=== PATIENT | female | born 1990 | race Caucasian/White ===

== ENCOUNTER 2023-01-15 19:56 | Emergency (ER) | payer BC ==
[2023-01-15] MEDS ORDERED: Morphine 4 MG/ML VIAL IM ONE (20:22)
[2023-01-15] MEDS ORDERED: diphenhydrAMINE 50 MG/ML SDV IM ONE (20:22)
[2023-01-15] MEDS ORDERED: hydrOXYzine HCl 50 MG/ML SDV IM ONE (20:22)
[2023-01-15 21:11] VITALS: BP 143/78; PULSE 87
== END 2023-01-15 21:09 | disposition home or self-care (01) ==
LOC: FB.ED 19:56
DX: G43.111 Migraine with aura, intractable, with status migrainosus (principal)
CPT/HCPCS: 96372; 99283; J1200; J2270; J3410

== ENCOUNTER 2023-05-07 20:39 | Emergency (ER) | payer BC ==
[2023-05-07] MEDS: hydrOXYzine HCl 50 MG/ML SDV IM ONE (21:02)
[2023-05-07] MEDS: Ketorolac 30 MG/ML SDV IM ONE (21:02)
[2023-05-08 02:08] VITALS: BP 143/89; PULSE 92
== END 2023-05-07 21:45 | disposition home or self-care (01) ==
LOC: FB.ED 20:39
DX: G43.909 Migraine, unspecified, not intractable, without status migrainosus (principal)
CPT/HCPCS: 96372; 99283; J1885; J3410

== ENCOUNTER 2024-09-07 17:56 | Emergency (ER) | payer BC, OTHER ==
[2024-09-07 18:36] LABS: BASOPHILS PERCENT AUTO 0.2 % (0.2-1.5); EOSINOPHILS ABSOLUTE AUTO 0.1 x10-3/uL (0.0-0.8); EOSINOPHILS PERCENT AUTO 0.9 % (0.6-8.1); HEMOGLOBIN 11.2 g/dL (11.4-15.5); LYMPHOCYTES ABSOLUTE AUTO 3.1 x10-3/uL (1.0-4.4); LYMPHOCYTES PERCENT AUTO 23.4 % (18.4-52.1); MEAN CORPUSCULAR HEMOGLOBIN 24.5 pg (23.9-33.9); MEAN CORPUSCULAR VOLUME 76.6 fL (76.7-100.5); MONOCYTES ABSOLUTE AUTO 0.7 x10-3/uL (0.3-1.0); MONOCYTES PERCENT AUTO 5.4 % (4.4-15.7); NEUTROPHILS ABSOLUTE AUTO 9.2 x10-3/uL (1.5-6.3); NEUTROPHILS PERCENT AUTO 70.1 % (30.8-76.2); PLATELET COUNT,PLT 421 x10(3)uL (151-488); RED BLOOD CELL COUNT 4.57 x10(6)uL (3.60-5.20); WHITE BLOOD CELL COUNT,WBC 13.1 x10-3/uL (3.0-10.3)
[2024-09-07 18:38] LABS: BLOOD UREA NITROGEN,BUN 16 mg/dL (7-18); BUN/CREATININE RATIO 17.8 (9-20); CALCIUM 9.4 mg/dL (8.6-10.2); CARBON DIOXIDE,CO2 29 mmol/L (21-32); CHLORIDE,CL 103 mmol/L (100-110); CREATININE 0.9 mg/dL (0.55-1.02); ESTIMATED GFR 86 mL/min (>60); GLUCOSE RANDOM 88 mg/dL (80-116); POTASSIUM,K 4.1 mmol/L (3.5-5.3); SODIUM,NA 138 mmol/L (135-145)
[2024-09-07 18:48] LABS: ALANINE AMINOTRANSFERASE,ALT 114 U/L (12-36); ALBUMIN 3.9 g/dL (3.5-5.2); ALKALINE PHOSPHATASE 74 IU/L (56-112); BILIRUBIN TOTAL 0.2 mg/dL (0.1-1.3); PROTEIN TOTAL,TP 7.8 g/dL (6.0-8.0)
[2024-09-07 18:50] LABS: ASPARTATE AMNIOTRANSFERASE,AST 161 IU/L (5-25)
[2024-09-07 19:19] LABS: BILIRUBIN,URINE NEGATIVE (NEGATIVE); GLUCOSE,URINE NORMAL (NORMAL); KETONES,URINE NEGATIVE (NEGATIVE); LEUKOCYTE ESTERASE,URINE NEGATIVE (NEGATIVE); NITRITE,URINE NEGATIVE (NEGATIVE); OCCULT BLOOD,URINE NEGATIVE (NEGATIVE); PROTEIN,URINE NEGATIVE (NEGATIVE); UROBILINOGEN,URINE NORMAL (NEGATIVE)
[2024-09-07 19:22] LABS: APPEARANCE,URINE CLEAR (CLEAR); COLOR,URINE YELLOW (YELLOW)
[2024-09-07 19:25] LABS: BACTERIA,URINE FEW (NS); RBC,URINE 0-5 (0-5); SQUAMOUS EPITHELIAL CELLS,UR FEW (NS,R,O); WBC,URINE 0-5 (0-5)
[2024-09-07] MEDS: Iopamidol 755 Mg/ML 100 ML Bottle IV SCH (19:53)
[2024-09-07 20:51] VITALS: BP 126/77; PULSE 82
== END 2024-09-07 21:57 | disposition home or self-care (01) ==
LOC: FB.ED 17:56
DX: K80.20 Calculus of gallbladder without cholecystitis without obstruction (principal); E11.9 Type 2 diabetes mellitus without complications; Z79.84 Long term (current) use of oral hypoglycemic drugs; Z79.899 Other long term (current) drug therapy
CPT/HCPCS: 36415; 74177; 80053; 81001; 81025; 83690; 85025; 99284; Q9967